=== PATIENT | female | born 1940 | race African-American/Black ===

== ENCOUNTER 2021-04-10 13:43 | Emergency (ER) | payer OTHER, BC ==
[~2021-04-10] VITALS: Ht 165.1 cm; Wt 54.4 kg
[2021-04-10] MEDS ORDERED: ALLOPURINOL 30300 M1 PO (15:08)
[2021-04-10] MEDS ORDERED: VITAMIN D350 MCG PO (15:08)
[2021-04-10] MEDS ORDERED: ATORVASTATIN CA80 MG PO (15:09)
[2021-04-10] MEDS ORDERED: FOLIC ACID1 MG PO (15:10)
[2021-04-10] MEDS ORDERED: PROZAC20 MG PO (15:10)
[2021-04-10] MEDS ORDERED: METOPROLOL SUCC25 M1 PO (15:11)
[2021-04-10] MEDS ORDERED: LISINOPRIL2.5 MG PO (15:11)
[2021-04-10] MEDS ORDERED: MELATONIN3 MG PO (15:11)
[2021-04-10] MEDS ORDERED: POTASSIUM CHLO10 ME1 PO (15:12)
[2021-04-10] MEDS ORDERED: XARELTO10 M1 PO (15:12)
[2021-04-10] MEDS ORDERED: NORCO 10-325 T1 EACH PO (15:12)
[2021-04-10] MEDS ORDERED: FUROSEMIDE 20 M20 M1 PO (15:13)
[2021-04-10] MEDS ORDERED: NEURONTIN 300M300 M2 PO (15:13)
[2021-04-10 15:46] LABS: ABSOLUTE NEUTROPHILS 3.2 thou/uL (1.4-8.2); BASOPHILS 1.3 % (0.0-2.0); EOSINOPHILS 1.8 % (0.0-3.0); HEMATOCRIT 24.1 % (37.0-47.0); HEMOGLOBIN 7.8 gm/dL (12.0-15.0); LYMPHOCYTES 28.2 % (24.0-44.0); MCH 34.1 pg (26.0-34.0); MCHC 32.6 g/dL (28.0-37.0); MCV 104.8 fL (80.0-100.0); MONOCYTES 6.2 % (1.0-8.0); PLATELET COUNT 223 thou/uL (150-400); POLYS 62.5 % (36.0-66.0); RDW 19.8 % (10.5-14.5); WBC 5.1 thou/uL (4.0-11.0)
[2021-04-10 15:52] LABS: CALCIUM 9.2 mg/dL (8.5-10.1); CREATININE 1.3 mg/dL (0.6-1.0)
[2021-04-10 16:35] VITALS: BP 126/71
--- NOTE | 2021-04-11 12:44 | EKG ---
[place] [address] [address] [facility] [address]MS [place] [address] ELECTROCARDIOGRAM REPORT Name: RADHAANDREW Gian [facility]: [facility]US[facility]annaReanna#: [id number] Admission: 04/10/21 Attend Phys: Discharge: 04/10/21 Date of : 38 Report #: [id number] [facility] ED Test Date: 2021-04-10 Test Time: 14:44:24 Pat Name: ANDREW GARCIA Department: Room: Gender: F [employer]ner: : 1940 Requested By: Steven Hopkins Order Number: [id number] MD: Rolando Gonzalez Measurements Intervals [place] Rate: 63 P: 21 KS: 240 QRS: -6 QRSD: 100 T: 32 QT: 493 QTc: 505 Interpretive Statements Sinus rhythm Prolonged [place] interval Borderline T abnormalities, anterior leads Prolonged QT interval No previous ECG available for comparison Electronically Signed On 04-11-2021 12:44:39 [employer] by Rolando Gonzalez [email or web address] <ELECTRONICALLY SIGNED> By: Rolando Gonzalez MD 04/11/21 1244 1444 1444 MD YONAS Rainey
== END 2021-04-10 16:36 | disposition home or self-care (01) ==
LOC: ER 13:43
PROVIDERS: Emergency Medicine
DX: R22.0 Localized swelling, mass and lump, head (principal); M25.552 Pain in left hip; M25.551 Pain in right hip; D64.9 Anemia, unspecified; M62.81 Muscle weakness (generalized); I10 Essential (primary) hypertension; E78.5 Hyperlipidemia, unspecified; Z79.899 Other long term (current) drug therapy; Z90.710 Acquired absence of both cervix and uterus; Z96.641 Presence of right artificial hip joint; W18.30XA Fall on same level, unspecified, initial encounter; Y93.89 Activity, other specified; Y92.89 Other specified places as the place of occurrence of the external cause; Y99.9 Unspecified external cause status

== ENCOUNTER → 2021-04-30 | Outpatient (CLI) | payer OTHER, BC ==
[~2021-04-30] MED LIST: ALLOPURINOL 30300 M1 PO; ATORVASTATIN CA80 MG PO; FOLIC ACID1 MG PO; FUROSEMIDE 20 M20 M1 PO; LISINOPRIL2.5 MG PO; MELATONIN3 MG PO; METOPROLOL SUCC25 M1 PO; NEURONTIN 300M300 M2 PO; NORCO 10-325 T1 EACH PO; POTASSIUM CHLO10 ME1 PO; PROZAC20 MG PO; VITAMIN D350 MCG PO; XARELTO10 M1 PO
== END ==
LOC: SJCVCIMAG 09:37
PROVIDERS: ATTEND Internal Medicine
DX: R94.31 Abnormal electrocardiogram [ECG] [EKG] (principal); I08.8 Other rheumatic multiple valve diseases; I44.0 Atrioventricular block, first degree; I42.0 Dilated cardiomyopathy; I11.9 Hypertensive heart disease without heart failure; I27.20 Pulmonary hypertension, unspecified; E78.00 Pure hypercholesterolemia, unspecified; E78.5 Hyperlipidemia, unspecified; F17.210 Nicotine dependence, cigarettes, uncomplicated; Z79.899 Other long term (current) drug therapy